=== PATIENT | female | born 1970 | race Caucasian/White ===

== ENCOUNTER → 2016-09-01 | Outpatient (REF) | payer OTHER ==
[~2016-09-01] MED LIST: CETI10TA OR; COLA100C2 PO; IBUP600T OR; LUNE2TAB OR; PERC5TAB8 OR
== END ==
LOC: M SFHCLERA 20:46
PROVIDERS: ATTEND Nurse Practitioner Family
DX: J06.9 Acute upper respiratory infection, unspecified (principal)

== ENCOUNTER → 2016-10-21 | Outpatient (CLI) | payer OTHER ==
--- NOTE | 2016-10-21 15:09 | REPMRS ---
Patient History The patient states she had a clinical breast exam in 03/13 Family history of breast cancer in mother at age 68 and breast cancer in maternal aunt at age 50. Benign ultrasound-guided core biopsy of the right breast, 2011. Reductions of both breasts. Digital Woman Screen Mammo: October 21, 2016 - Exam #: [id number] Bilateral CC and MLO view(s) were taken. Technologist: Elsa Eaton, Technologist Prior study comparison: August 24, 2014, digital woman screen mammo performed at [facility]. August 10, 2012, digital mammo diagnostic bilateral, performed at [facility]. FINDINGS: There are scattered fibroglandular densities. There has been no change in the appearance of the mammogram from the prior studies. There is a mild amount of residual fibroglandular tissue which is fairly symmetric. There is no interval development of dominant mass, architectural distortion, or clustered microcalcification suggestive of malignancy. ASSESSMENT: BI-RADS/ACR category 1 mammogram. Negative. Recommendation Routine screening mammogram in 1 year (for women over age 40). This mammogram was interpreted with the aid of an FDA-approved computer-aided dectection system. Electronically Signed By: Haim Magallanes MD 10/21/16 [id number]
== END ==
LOC: M WHC 13:03
PROVIDERS: ATTEND Emergency Medicine
DX: Z12.31 Encounter for screening mammogram for malignant neoplasm of breast (principal)

== ENCOUNTER → 2017-05-31 | Outpatient (REF) | payer OTHER ==
[2017-05-31 16:42] LABS: ALBUMIN/GLOBULIN RATIO 1.48 (1.00-1.93); ALKALINE PHOSPHATASE 81 U/L (45-117); ALT/SGPT 30 U/L (12-78); ANION GAP 8 MEQ/L (8-16); AST/SGOT 19 U/L (7-37); BILIRUBIN,TOTAL 0.4 MG/DL (0.2-1.0); BLOOD UREA NITROGEN 8 MG/DL (7-18); CALCIUM LEVEL 8.7 MG/DL (8.5-10.1); CARBON DIOXIDE LEVEL 28 MEQ/L (21-32); CHLORIDE LEVEL 105 MEQ/L (98-107); CREATININE FOR GFR 0.67 MG/DL (0.55-1.02); GLOMERULAR FILTRATION RATE > 60.0 (>58); GLUCOSE, FASTING 104 MG/DL (70-105); POTASSIUM SERUM 4.1 MEQ/L (3.5-5.1); SODIUM LEVEL 141 MEQ/L (136-145); TOTAL PROTEIN 6.7 GM/DL (6.4-8.2); URIC ACID 3.3 MG/DL (2.6-6.0)
[2017-05-31 18:28] LABS: BASO % 0.3 % (0.0-1.0); EOS # 0.1 10^3/uL (0.0-0.50); EOS % 1.8 % (0.0-3.0); IMMATURE GRANULOCYTE % 0.1 % (0-0); LYMPH # 1.6 10^3/uL (1.5-4.5); LYMPH % 24.1 % (24.0-44.0); MEAN CORPUSCULAR HEMOGLOBIN 29.5 pg (27.0-33.0); MEAN CORPUSCULAR HGB CONC 32.1 g/dl (32.0-36.5); MEAN CORPUSCULAR VOLUME 91.9 fl (80.0-96.0); MONO # 0.6 10^3/uL (0.0-0.8); NEUTROPHILS # 4.3 10^3/uL (1.8-7.7); NEUTROPHILS % 64.7 % (36.0-66.0); PLATELET COUNT, AUTOMATED 241 10^3/uL (150-450); RED CELL DISTRIBUTION WIDTH 12.1 % (11.5-14.5); WHITE BLOOD COUNT 6.7 10^3/uL (4.0-10.0)
== END ==
LOC: M LABDRAW1 13:40
PROVIDERS: ATTEND Family Medicine
DX: M10.9 Gout, unspecified (principal)

== ENCOUNTER → 2018-04-12 | Outpatient (CLI) | payer OTHER | LOC: M WHC 16:36 | DX: Z12.31 Encounter for screening mammogram for malignant neoplasm of breast (principal); N60.31 Fibrosclerosis of right breast; N60.32 Fibrosclerosis of left breast | CPT/HCPCS: 77067 ==

== ENCOUNTER → 2018-05-24 | Outpatient (REF) | payer OTHER ==
[2018-05-24 15:59] LABS: TOTAL 25(OH) VITAMIN D 39.5 NG/ML (30.0-100.0)
== END ==
LOC: M LABDRAW1 11:57
DX: E55.9 Vitamin D deficiency, unspecified (principal)
CPT/HCPCS: 82306

== ENCOUNTER → 2018-09-29 | Outpatient (REF) | payer OTHER | LOC: M SFHCLERA 18:09 | PROVIDERS: ATTEND Nurse Practitioner Family | DX: R68.89 Other general symptoms and signs (principal) ==

== ENCOUNTER → 2019-07-14 | Outpatient (CLI) | payer OTHER ==
--- NOTE | 2019-07-14 20:42 | REPMRS ---
Patient History The patient states she has not had a clinical breast exam in over a year. Family history of breast cancer at age 68 in mother, breast cancer at age 50 in maternal aunt. Benign ultrasound-guided core biopsy of the right breast, 2011. Reductions of both breasts. No Hormone Replacement Therapy Digital Woman Screen Mammo: July 14, 2019 - Exam #: [id number] Bilateral CC and MLO view(s) were taken. Technologist: Brianne Figueroa, Technologist Prior study comparison: April 12, 2018, bilateral digital woman screen mammo performed at [facility]. October 21, 2016, digital woman screen mammo performed at [facility]. 2014, bilateral diagnostic 3D/tomosynthesis, performed at [facility]. FINDINGS: There are scattered fibroglandular densities. There is a moderate amount of residual fibroglandular tissue which is fairly symmetric. There is no interval development of dominant mass, architectural distortion, or grouped microcalcification typical of malignancy. There has been no change in the appearance of the mammogram from the prior studies. Assessment: BI-RADS/ACR category 1 mammogram. Negative Mammogram. Recommendation Routine screening mammogram of both breasts in 1 year (for women over age 40). This patient's Lifetime Breast Cancer RIsk is estimated at 18.5 %. This mammogram was interpreted with the aid of an FDA-approved computer-aided dectection system. Electronically Signed By: Salas Hernández MD 07/14/19 [id number]
== END ==
LOC: M WHC 14:54
PROVIDERS: ATTEND Physician Assistant
DX: Z12.31 Encounter for screening mammogram for malignant neoplasm of breast (principal); Z80.3 Family history of malignant neoplasm of breast

== ENCOUNTER → 2019-07-31 | Outpatient (CLI) | payer OTHER | LOC: M PLALAB 11:04 | PROVIDERS: ATTEND Nurse Practitioner Family | DX: Z80.3 Family history of malignant neoplasm of breast (principal); Z80.2 Family history of malignant neoplasm of other respiratory and intrathoracic organs | CPT/HCPCS: 36415; G0463 ==

== ENCOUNTER → 2019-09-19 | Outpatient (REF) | payer OTHER | LOC: M LAB REF 17:05 | PROVIDERS: ATTEND Physician Assistant | DX: J02.9 Acute pharyngitis, unspecified (principal) ==

== ENCOUNTER → 2020-03-14 | Outpatient (CLI) | payer OTHER ==
--- NOTE | 2020-03-14 08:30 | REPVR ---
PROCEDURE INFORMATION: Exam: MR Cervical Spine Without Contrast Exam date and time: 03/14/2020 8:06 AM Age: 50 years old Clinical indication: Neck pain; Additional info: Migraine associated with neck pain, no better w/med TECHNIQUE: Imaging protocol: Multiplanar magnetic resonance images of the cervical spine without contrast. COMPARISON: No relevant prior studies available. FINDINGS: Limitations: There is motion artifact partially degrading examination. Vertebrae: Minimal endplate changes posterior aspect of superior endplate likely related to disc bulging. No suspicious marrow lesions. Normal vertebral heights. Straightening of lordosis may be positional or related to muscular spasm. Correlate clinically. Spinal cord: Normal signal. No cord compression. C2-C3: No significant disc disease. No significant spinal stenosis or neural foraminal narrowing. C3-C4: Minimal central disc bulge. No significant spinal stenosis, cord impingement, or neural foraminal narrowing. C4-C5: Minimal central disc bulge. No significant spinal stenosis, cord impingement, or neural foraminal narrowing. C5-C6: No significant disc disease. No significant spinal stenosis, cord impingement, or neural foraminal narrowing. C6-C7: Minimal disc bulge. No significant spinal stenosis, cord impingement, or neural foraminal narrowing. C7-T1: Mild disc bulge. No significant spinal stenosis, cord impingement, or neural foraminal narrowing. Vertebral arteries: Expected flow voids in the vertebral arteries. Soft tissues: Unremarkable. IMPRESSION: Minor disc bulging. No cord impingement, spinal stenosis, or neural foraminal narrowing. Electronically signed by: Sosa Morejon On 03/14/2020 08:30:02 AM
--- NOTE | 2020-03-14 08:31 | REPVR ---
PROCEDURE INFORMATION: Exam: MR Head Without Contrast Exam date and time: 03/14/2020 8:06 AM Age: 50 years old Clinical indication: Pain; Headache; Migraine; Aura effect not specified; Does not respond to medication; Severity not specified; Additional info: Migraine associated with neck pain, no better w/med TECHNIQUE: Imaging protocol: MR of the head without contrast. COMPARISON: No relevant prior studies available. FINDINGS: Brain: There is motion artifact partially degrading examination. No abnormal areas of signal intensity are seen. Diffusion images are normal. No evidence of acute infarction. No evidence of acute intracranial hemorrhage. No extra-axial fluid collections. Ventricles and cerebrospinal fluid spaces are normal in size and configuration for the patient's age. There is no evidence of mass-effect or midline shift. Flow voids of the [place] and major cerebral vascular structures appear intact. Craniocervical junction appears unremarkable, with normal position of cerebellar tonsils and no evidence of Chiari I malformation. Ventricles: No evidence of hydrocephalus Bones/joints: Unremarkable as visualized. Sinuses: Unremarkable as visualized. No acute sinusitis. Mastoid air cells: No significant mastoid effusion. Orbits: Unremarkable as visualized. No exophthalmos or evidence of mass. Soft tissues: Unremarkable as visualized. IMPRESSION: No evidence of acute intracranial abnormality. No acute infarct or evidence of acute or chronic hemorrhage. No evidence of mass producing lesion. Electronically signed by: Sosa Morejon On 03/14/2020 08:31:32 AM
== END ==
LOC: M RAD 06:55
PROVIDERS: ATTEND Physician Assistant
DX: G43.009 Migraine without aura, not intractable, without status migrainosus (principal); M50.21 Other cervical disc displacement, high cervical region; M50.223 Other cervical disc displacement at C6-C7 level; M50.23 Other cervical disc displacement, cervicothoracic region

== ENCOUNTER → 2021-02-16 | Outpatient (CLI) | payer OTHER ==
[2021-02-16 11:50] LABS: BASO % 0.8 % (0.0-1.0); EOS # 0.2 10^3/uL (0.0-0.5); EOS % 3.1 % (0.0-3.0); HEMATOCRIT 35.1 % (36.0-47.0); HEMOGLOBIN 10.7 g/dl (12.0-15.5); LYMPH # 1.6 10^3/uL (1.5-5.0); LYMPH % 33.1 % (24.0-44.0); MEAN CORPUSCULAR HEMOGLOBIN 25.7 pg (27.0-33.0); MEAN CORPUSCULAR HGB CONC 30.5 g/dl (32.0-36.5); MEAN CORPUSCULAR VOLUME 84.4 fl (80.0-96.0); MONO # 0.5 10^3/uL (0.0-0.8); MONO % 10.7 % (2.0-8.0); NEUTROPHILS # 2.5 10^3/uL (1.5-8.5); NEUTROPHILS % 52.1 % (36.0-66.0); PLATELET COUNT, AUTOMATED 278 10^3/uL (150-450); RED BLOOD COUNT 4.16 10^6/uL (4.00-5.40); WHITE BLOOD COUNT 4.8 10^3/uL (4.0-10.0)
[2021-02-16 12:17] LABS: ALBUMIN 3.5 GM/DL (3.2-5.2); ALT/SGPT 22 U/L (12-78); BILIRUBIN,DIRECT < 0.1 MG/DL (0.0-0.2); BILIRUBIN,TOTAL 0.2 MG/DL (0.2-1.0); BLOOD UREA NITROGEN 5 MG/DL (7-18); CALCIUM LEVEL 8.5 MG/DL (8.5-10.1); CARBON DIOXIDE LEVEL 29 MEQ/L (21-32); CHLORIDE LEVEL 111 MEQ/L (98-107); CREATININE FOR GFR 0.63 MG/DL (0.55-1.30); GLOMERULAR FILTRATION RATE > 60.0 (>51); GLUCOSE, FASTING 89 MG/DL (70-100); POTASSIUM SERUM 4.4 MEQ/L (3.5-5.1); SODIUM LEVEL 142 MEQ/L (136-145); TOTAL PROTEIN 6.6 GM/DL (6.4-8.2)
== END ==
LOC: M LAB 11:28
PROVIDERS: ATTEND Physician Assistant
DX: R19.7 Diarrhea, unspecified (principal)

== ENCOUNTER → 2022-03-15 | Outpatient (REF) | payer OTHER | LOC: M LAB REF 11:54 | PROVIDERS: ATTEND Physician Assistant | DX: R19.7 Diarrhea, unspecified (principal) ==

== ENCOUNTER → 2022-07-21 | Outpatient (CLI) | payer OTHER | LOC: M WHC 14:27 | PROVIDERS: ATTEND Physician Assistant | DX: Z12.31 Encounter for screening mammogram for malignant neoplasm of breast (principal); Z53.9 Procedure and treatment not carried out, unspecified reason; Z13.820 Encounter for screening for osteoporosis; M85.89 Other specified disorders of bone density and structure, multiple sites ==

== ENCOUNTER → 2022-09-15 | Outpatient (CLI) | payer OTHER ==
[~2022-09-15] MED LIST changes: +ALPR0.5T3 PO; +BUTA1CAP PO; +CETI10CH PO; +DOCU100C16 PO; +LINZ145C PO; +MONT10TA97 PO; +NORT50CA PO; +ONDA-195 PO; +PANT40TA29 PO; +TIZA4CAP PO; +TOPI100T9 PO; +ZOLP12.518 PO
== END ==
LOC: M WHC 07:28
PROVIDERS: ATTEND Physician Assistant
DX: N63.24 Unspecified lump in the left breast, lower inner quadrant (principal)
CPT/HCPCS: 76642; 77066; G0279

== ENCOUNTER 2022-12-07 13:11 | Day surgery (SDC) | payer OTHER ==
[~2022-12-07] VITALS: Ht 170.2 cm; Wt 61.3 kg
[~2022-12-07 13:11] MED LIST changes: +NS 1,000 ML IV ONE
[2022-12-07] MEDS: NS 1,000 ML IV ONE (15:13)
[2022-12-07] MEDS ORDERED: LIDOCAINE 2% 100MG/5ML SDV (FOR ANES.) As Ordered ONE (16:16)
[2022-12-07] MEDS ORDERED: propofoL 200 MG/20 ML VIAL As Ordered ONE (16:16)
[2022-12-07 17:34] VITALS: BP 136/65; TEMP 97.2; O2SAT 100
== END 2022-12-07 17:36 | disposition home or self-care (01) ==
LOC: M OPP 13:11
PROVIDERS: ATTEND Internal Medicine Gastroenterology
DX: D12.6 Benign neoplasm of colon, unspecified (principal); K64.8 Other hemorrhoids; K29.70 Gastritis, unspecified, without bleeding; R10.13 Epigastric pain; Z98.0 Intestinal bypass and anastomosis status

== ENCOUNTER 2023-07-16 19:17 | Emergency (ER) | payer OTHER ==
[~2023-07-16] VITALS: Ht 170.2 cm; Wt 62.3 kg
[~2023-07-16 19:17] MED LIST changes: -NS 1,000 ML IV ONE
[2023-07-16 22:48] VITALS: BP 136/63; TEMP 98; O2SAT 100
== END 2023-07-16 22:50 | disposition home or self-care (01) ==
LOC: M ED 19:17
DX: T17.920A Food in respiratory tract, part unspecified causing asphyxiation, initial encounter (principal); K21.9 Gastro-esophageal reflux disease without esophagitis; Z98.84 Bariatric surgery status; Z79.891 Long term (current) use of opiate analgesic; Z79.899 Other long term (current) drug therapy; Z79.83 Long term (current) use of bisphosphonates

== ENCOUNTER 2023-11-05 07:37 | Day surgery (SDC) | payer OTHER ==
[~2023-11-05] VITALS: Ht 172.7 cm; Wt 57.2 kg
[~2023-11-05 07:37] MED LIST changes: +ACET1TAB55 PO; +IBUP-1022 PO; -ZOLP12.518 PO; +ZOLP12.535 PO
[2023-11-05] MEDS: NS 1,000 ML IV ONE (07:56)
[2023-11-05] MEDS ORDERED: MIDAZOLAM INJ 2MG/2ML VIAL As Ordered ONE (08:14)
[2023-11-05] MEDS ORDERED: LIDOCAINE 2% INJ 100 MG/5 ML SYRINGE As Ordered ONE (08:14)
[2023-11-05] MEDS ORDERED: propofoL 200 MG/20 ML VIAL As Ordered ONE (08:14)
[2023-11-05 08:42] VITALS: TEMP 97.7
[2023-11-05 09:00] VITALS: BP 149/75; O2SAT 100
[2023-11-05] MEDS: ACETAMINOPHEN 500 MG TAB PO ONE (09:33)
[2023-11-05] MEDS: CALCIUM CARBONATE 500 MG CHEW U/D PO ONE (09:33)
== END 2023-11-05 09:45 | disposition home or self-care (01) ==
LOC: M OPP 07:37
PROVIDERS: ATTEND Internal Medicine Gastroenterology
DX: K22.2 Esophageal obstruction (principal); K21.00 Gastro-esophageal reflux disease with esophagitis, without bleeding; B37.81 Candidal esophagitis; K58.9 Irritable bowel syndrome, unspecified; K29.70 Gastritis, unspecified, without bleeding; Z98.84 Bariatric surgery status; Z79.899 Other long term (current) drug therapy; Z87.891 Personal history of nicotine dependence
CPT/HCPCS: 43239; 43249; 88108; 88305; J2250

== ENCOUNTER 2023-12-11 10:29 | Emergency (ER) | payer OTHER ==
[~2023-12-11] VITALS: Ht 170.2 cm; Wt 55.1 kg
[2023-12-11 11:15] LABS: HEMATOCRIT 25.6 % (36.0-47.0); HEMOGLOBIN 7.4 g/dl (12.0-15.5); MEAN CORPUSCULAR HEMOGLOBIN 19.8 pg (27.0-33.0); MEAN CORPUSCULAR HGB CONC 28.9 g/dl (32.0-36.5); MEAN CORPUSCULAR VOLUME 68.6 fl (80.0-96.0); PLATELET COUNT, AUTOMATED 403 10^3/uL (150-450); RED BLOOD COUNT 3.73 10^6/uL (4.00-5.40); WHITE BLOOD COUNT 3.8 10^3/uL (4.0-10.0)
[2023-12-11 11:29] LABS: INR 1.02; PROTHROMBIN TIME 13.1 SECONDS (12.5-14.5)
[2023-12-11 11:47] LABS: ATYPICAL LYMPH 3 % (0-5); BASOPHILS 3 % (0-1); EOSINOPHILS 6 % (0-3); LYMPHOCYTES 43 % (16-44); MONOCYTES 2 % (0-5); NEUTROPHILS 43 % (28-66)
[2023-12-11 11:49] LABS: ANISOCYTOSIS 1+; HYPOCHROMASIA 2+; OVALOCYTES 1+; PLATELET ESTIMATE NORMAL (NORMAL); POIKILOCYTOSIS 1+
[2023-12-11 11:50] LABS: ALBUMIN 3.6 G/DL (3.2-5.2); ALKALINE PHOSPHATASE 80 U/L (46-116); ALT/SGPT 18 U/L (7.0-40); AST/SGOT 18 U/L (<34); BILIRUBIN,DIRECT < 0.1 MG/DL (<0.4); BILIRUBIN,TOTAL 0.2 MG/DL (0.3-1.2); BLOOD UREA NITROGEN 7 MG/DL (9-23); CALCIUM LEVEL 9.1 MG/DL (8.5-10.1); CARBON DIOXIDE LEVEL 24 MMOL/L (20-31); CHLORIDE LEVEL 109 MMOL/L (98-107); CREATININE FOR GFR 0.54 MG/DL (0.55-1.30); FERRITIN 1.7 NG/ML (7.3-270.7); GLOMERULAR FILTRATION RATE > 60.0 (>51); GLUCOSE, FASTING 92 MG/DL (60-100); IRON (FE) 10 UG/DL (50-170); MICROCYTOSIS 3+; SODIUM LEVEL 140 MMOL/L (136-145); TOTAL PROTEIN 6.3 G/DL (5.7-8.2)
[2023-12-11 11:51] LABS: TEAR DROP CELLS 1+
[2023-12-11 11:52] LABS: VITAMIN B12 LEVEL 417 PG/ML (211-911)
[2023-12-11] MEDS ORDERED: CETI-24 PO (17:31)
[2023-12-11] MEDS ORDERED: TIZA10TA PO (17:31)
[2023-12-11] MEDS ORDERED: LINZ290C PO (17:31)
[2023-12-11] MEDS ORDERED: TOPI200T7 PO (17:31)
[2023-12-11 17:39] VITALS: TEMP 99
[2023-12-11] MEDS ORDERED: HOME MED LIST COMPLETE! XX SCH (17:55)
[2023-12-11] MEDS: IRON SUCROSE 200 MG in NS 100 ML IV ONE (18:15)
[2023-12-11 19:00] VITALS: BP 118/54; O2SAT 99
== END 2023-12-11 19:37 | disposition home or self-care (01) ==
LOC: M ED 10:29
DX: D50.9 Iron deficiency anemia, unspecified (principal); Z87.19 Personal history of other diseases of the digestive system; Z98.84 Bariatric surgery status; Z79.899 Other long term (current) drug therapy
CPT/HCPCS: 80048; 80076; 82607; 82728; 83540; 85025; 85610; 85730; 86850; 86870; 86880; 86900; 86901; 86905; 93041; 96365; 99285; J1756

== ENCOUNTER → 2023-12-15 | Outpatient (CLI) | payer OTHER ==
[~2023-12-15] MED LIST changes: +CETI-24 PO; +LINZ290C PO; +TIZA10TA PO; +TOPI200T7 PO
[2023-12-15 16:35] LABS: BASO # 0.1 10^3/uL (0.0-0.2); BASO % 1.1 % (0.0-1.0); EOS # 0.2 10^3/uL (0.0-0.5); EOS % 5.2 % (0.0-3.0); HEMATOCRIT 26.1 % (36.0-47.0); HEMOGLOBIN 7.4 g/dl (12.0-15.5); LYMPH # 1.8 10^3/uL (1.5-5.0); LYMPH % 39.8 % (24.0-44.0); MEAN CORPUSCULAR HEMOGLOBIN 19.9 pg (27.0-33.0); MEAN CORPUSCULAR HGB CONC 28.4 g/dl (32.0-36.5); MEAN CORPUSCULAR VOLUME 70.4 fl (80.0-96.0); MONO # 0.4 10^3/uL (0.0-0.8); MONO % 8.9 % (2.0-8.0); NEUTROPHILS # 2.1 10^3/uL (1.5-8.5); NEUTROPHILS % 44.8 % (36.0-66.0); PLATELET COUNT, AUTOMATED 387 10^3/uL (150-450); RED BLOOD COUNT 3.71 10^6/uL (4.00-5.40); WHITE BLOOD COUNT 4.6 10^3/uL (4.0-10.0)
== END ==
LOC: M LAB 16:07
PROVIDERS: ATTEND Physician Assistant
DX: K62.5 Hemorrhage of anus and rectum (principal)

== ENCOUNTER 2023-12-17 07:02 | Outpatient (CLI) | payer OTHER ==
[~2023-12-17] VITALS: Ht 170.2 cm; Wt 55.0 kg
[2023-12-17] VITALS (7 sets, daily range): BP systolic 117–131; BP diastolic 55–66; TEMP 97–98; O2SAT 97–100
[2023-12-17] MEDS ORDERED: NS 250 ML IV ONE (07:45)
[2023-12-17] MEDS: diphenhydrAMINE 25MG CAP PO ONE (07:46)
[2023-12-17] MEDS: ACETAMINOPHEN TAB 650MG DOSE (2X325MG) PO ONE (07:46)
== END 2023-12-17 13:00 | disposition home or self-care (01) ==
LOC: M INFU 07:02
PROVIDERS: ATTEND Family Medicine
DX: D50.0 Iron deficiency anemia secondary to blood loss (chronic) (principal)
CPT/HCPCS: 36430; P9016

== ENCOUNTER → 2023-12-28 | Outpatient (CLI) | payer OTHER ==
[~2023-12-28] MED LIST changes: +GASTROGRAFIN SOLUTION 30ML As Ordered ONE; +ISOVUE-370 76% 100ML VIAL As Ordered ONE
== END ==
LOC: M RAD 07:05
PROVIDERS: ATTEND Physician Assistant
DX: K62.5 Hemorrhage of anus and rectum (principal); R93.3 Abnormal findings on diagnostic imaging of other parts of digestive tract
CPT/HCPCS: 74177; Q9963; Q9967

== ENCOUNTER 2024-01-04 11:12 | Outpatient (CLI) | payer OTHER ==
[~2024-01-04] VITALS: Ht 170.2 cm; Wt 55.0 kg
[~2024-01-04 11:12] MED LIST changes: -GASTROGRAFIN SOLUTION 30ML As Ordered ONE; -ISOVUE-370 76% 100ML VIAL As Ordered ONE
[2024-01-04 11:25] VITALS: BP 139/71; O2SAT 99
[2024-01-04] MEDS: FERRIC CARBOXYMALTOSE INJ 750 MG in NS 250 ML (>50kg) IV ONE (11:51)
[2024-01-04 12:50] VITALS: BP 133/74; O2SAT 100
== END 2024-01-04 13:00 ==
LOC: M INFU 11:12
PROVIDERS: ATTEND Family Medicine
DX: D50.0 Iron deficiency anemia secondary to blood loss (chronic) (principal)
CPT/HCPCS: 96365; J1439

== ENCOUNTER 2024-01-11 11:30 | Outpatient (CLI) | payer OTHER ==
[~2024-01-11] VITALS: Ht 166.4 cm; Wt 55.9 kg
[2024-01-11 11:25] VITALS: BP 137/68; O2SAT 100
[2024-01-11] MEDS: FERRIC CARBOXYMALTOSE INJ 750 MG in NS 250 ML (>50kg) IV ONE (11:35)
[2024-01-11 12:45] VITALS: BP 136/64; O2SAT 100
== END 2024-01-11 13:00 ==
LOC: M INFU 11:30
PROVIDERS: ATTEND Family Medicine
DX: D50.0 Iron deficiency anemia secondary to blood loss (chronic) (principal)
CPT/HCPCS: 96365; J1439

== ENCOUNTER 2024-01-29 08:18 | Emergency (ER) | payer OTHER ==
[~2024-01-29] VITALS: Ht 170.2 cm; Wt 56.1 kg
[2024-01-29 08:18] VITALS: TEMP 97.6
[2024-01-29] MEDS ORDERED: TOBRSUS8 OP (11:22)
[2024-01-29 12:05] VITALS: BP 142/79; O2SAT 94
[2024-01-29] MEDS: FLUORESCEIN OPHTH 1MG STRIP OS ONE (12:30)
[2024-01-29] MEDS: PROPARACAINE 0.5% OPHTH SOL 15ML OS ONE (12:30)
[2024-01-29] MEDS ORDERED: ERYT5OIN25 OS (12:36)
== END 2024-01-29 13:23 | disposition home or self-care (01) ==
LOC: M ED 08:18
DX: S05.02XA Injury of conjunctiva and corneal abrasion without foreign body, left eye, initial encounter (principal); X58.XXXA Exposure to other specified factors, initial encounter; Y92.009 Unspecified place in unspecified non-institutional (private) residence as the place of occurrence of the external cause; Y93.9 Activity, unspecified; Y99.9 Unspecified external cause status; Z79.899 Other long term (current) drug therapy

== ENCOUNTER → 2024-06-07 | Outpatient (CLI) | payer OTHER ==
[~2024-06-07] MED LIST changes: +CELE1CAP99 PO; +E-Z-PAQUE 96% w/w SUSP 176GM BTL As Ordered ONE; +ERYT5OIN25 OS; +FERR325T19 PO; +TOBRSUS8 OP
== END ==
LOC: M RAD 07:57
PROVIDERS: ATTEND Internal Medicine Gastroenterology
DX: D50.0 Iron deficiency anemia secondary to blood loss (chronic) (principal); R13.10 Dysphagia, unspecified; K92.1 Melena; R10.84 Generalized abdominal pain; R63.4 Abnormal weight loss

== ENCOUNTER → 2025-02-08 | Outpatient (REF) | payer OTHER ==
[~2025-02-08] MED LIST changes: -E-Z-PAQUE 96% w/w SUSP 176GM BTL As Ordered ONE; +TOPI-14 PO; +TOPI-257 PO; -TOPI100T9 PO; -TOPI200T7 PO
== END ==
LOC: M LAB REF 16:54
PROVIDERS: ATTEND Physician Assistant
DX: N39.0 Urinary tract infection, site not specified (principal)